=== PATIENT | female | born 1965 | race Caucasian/White ===

== ENCOUNTER 2021-05-07 15:39 | Emergency (ER) | payer BC ==
--- NOTE | 2021-05-07 17:38 | EDM.PDOC ---
ED HPI GENERAL MEDICAL PROBLEM - General Chief Complaint: Back Pain or Injury Stated Complaint: SEVERAL BACK PAIN Time Seen by Provider: 05/07/21 17:10 - History of Present Illness INITIAL COMMENTS - FREE TEXT/NARRATIVE: This is a 55-year-old female with history of low back pain who presents with concerns of recurrent low back pain. She reports that her symptoms started earlier in the week when she awoke from sleep and twisted her back in an awkward fashion. Got better then several days later had a similar episode prompting her visit to the ED. She reports that the pain is excruciating. Is worse with movement. She has been trying intermittent Advil throughout the day. She has no lower extremity weakness. No fevers. No IV drug use. No saddle anesthesia. No bowel or urine incontinence. back Pain Score (Numeric/FACES): 4 - Related Data Allergies Allergy/AdvReac Type Severity Reaction Status Date / Time No Known Allergies Allergy Verified 05/07/21 16:54 Home Meds: Home Meds FLUoxetine HCl [Prozac] 60 mg PO DAILY 05/07/21 [History] diazePAM [Valium] 10 mg PO ASDIRECTED PRN 05/07/21 [History] oxyCODONE 5 mg PO Q6H PRN #3 tab 05/07/21 [Rx] Past Medical History HEENT History: Reports: Other (See Below) Other HEENT History: recurrent ear infections Musculoskeletal History: Reports: Osteoarthritis, Other (See Below) Other Musculoskeletal History: discectomy in 1992 of the L4-L5 Neurological History: Reports: Concussion Psychiatric History: Reports: Anxiety - Infectious Disease History Infectious Disease History: Reports: None - Past Surgical History HEENT Surgical History: Reports: Adenoidectomy, Tonsillectomy Female Surgical History: Reports: D&C, Tubal Ligation Neurological Surgical History: Reports: Lumbar Spine Musculoskeletal Surgical History: Reports: Hip Replacement Social & Family History - Tobacco Use Tobacco Use Status *Q: Never Tobacco User Second Hand Smoke Exposure: No - Caffeine Use Caffeine Use: Reports: Coffee, Soda - Recreational Drug Use Recreational Drug Use: No ED ROS GENERAL - Review of Systems Review Of Systems: See Below Constitutional: Reports: No Symptoms HEENT: Reports: No Symptoms Respiratory: Reports: No Symptoms Cardiovascular: Reports: No Symptoms Endocrine: Reports: No Symptoms GI/Abdominal: Reports: No Symptoms : Reports: No Symptoms Musculoskeletal: Reports: Back Pain Skin: Reports: No Symptoms Neurological: Reports: No Symptoms Psychiatric: Reports: No Symptoms Hematologic/Lymphatic: Reports: No Symptoms Immunologic: Reports: No Symptoms ED EXAM,LOWER BACK PAIN/INJURY - Physical Exam Exam: See Below Exam Limited By: No Limitations General Appearance: Alert, No Apparent Distress Ears: Normal External Exam Nose: Normal Inspection Throat/Mouth: Normal Inspection Head: Atraumatic, Normocephalic Neck: Normal Inspection Respiratory/Chest: No Respiratory Distress, Lungs Clear Cardiovascular: Regular Rate, Rhythm GI/Abdominal: Soft, Non-Tender Back Exam: Normal Inspection Extremities: Normal Inspection Neurological: Alert, Normal Mood/Affect, Normal Gait, No Motor/Sensory Deficits. No: Straight Leg Raise (L), Straight Leg Raise (R) Psychiatric: Normal Affect, Normal Mood Skin Exam: Warm, Dry Course - Vital Signs Last Recorded V/S: Last Vital Signs Temp 35.8 C L 05/07/21 16:31 Pulse 63 05/07/21 16:31 Resp 28 H 05/07/21 16:31 BP 131/77 05/07/21 16:31 Pulse Ox 98 05/07/21 16:31 - Re-Assessments/Exams Free Text/Narrative Re-Assessment/Exam: This is a 55-year-old with history of low back pain and prior discectomy who presents with concerns of atraumatic low back pain. On exam she is neuro intact. There are no red flags to necessitate imaging. We discussed symptomatic cares including scheduled Tylenol and ibuprofen. I provided her with several oxycodone tabs to help with sleep at night. We placed referral to PT as well as to the primary care clinic here in town to help her establish care as she just moved to the area. I stressed the importance of follow-up and working with the physical therapist. She was discharged with return precautions. 05/07/21 18:25 Departure - Departure Time of Disposition: 17:15 Disposition: Home, Self-Care 01 Clinical Impression: Low back pain Qualifiers: Chronicity: acute Back pain laterality: midline Sciatica presence: without sciatica Qualified Code(s): M54.5 - Low back pain - Discharge Information Prescriptions: oxyCODONE 5 mg PO Q6H PRN #3 tab PRN Reason: Pain Instructions: Acute Back Pain, Adult Referrals: PCP,None [Primary Care Provider] - Forms: ED Department Discharge Additional Instructions: As discussed, there are several things he can do for your low back pain. Please take Tylenol and ibuprofen scheduled throughout the day, make sure you are edmund ing 1000 mg of Tylenol at a time up to 4 times daily. Use the prescribed pain medicine as needed. We have placed a referral to PT and for you to establish a primary care doctor. You develop significant weakness in the extremities or new symptoms of pain concerning for is happy to evaluate you in the emergency room. Thank you for letting us care for you today. Sepsis Event Note (ED) - Evaluation Sepsis Screening Result: No Definite Risk - Focused Exam Vital Signs: Vital Signs Temp Pulse Resp BP Pulse Ox 05/07/21 16:31 35.8 C L 63 28 H 131/77 98
== END 2021-05-07 17:59 | disposition home or self-care (01) ==
LOC: JP.ED 15:39
DX: M54.5 Low back pain (principal)
CPT/HCPCS: 99283